=== PATIENT | female | born 1965 | race Hispanic/Latino ===

== ENCOUNTER 2021-01-11 16:43 | Observation (INO) | payer BC ==
[~2021-01-11] VITALS: Ht 152.4 cm; Wt 86.1 kg
[2021-01-11] MEDS ORDERED: ONDANSETRON 4MG INJ IVP ONE (17:00)
[2021-01-11] MEDS ORDERED: 0.9%NACL 1000ML 1,000 ML IV ONE (17:00)
[2021-01-11] MEDS ORDERED: MORPHINE 2 MG SYG IVP ONE (17:00)
[2021-01-11] MEDS ORDERED: PANTOPRAZOLE 40 MG/VIAL IVP ONE (17:00)
[2021-01-11 17:27] LABS: BASOPHILS % (AUTO) 0.5 % (0.0-5.0); EOSINOPHILS % (AUTO) 0.4 % (0.0-8.0); LYMPHOCYTES % (AUTO) 16.8 % (21.0-51.0); MEAN CORPUSCULAR HEMOGLOBIN 29.9 pg (27.0-33.0); MEAN CORPUSCULAR HGB CONC 32.6 g/dL (32.0-36.0); MEAN CORPUSCULAR VOLUME 91.8 fL (79-99); MONOCYTES % (AUTO) 6.1 % (3.0-13.0); NEUTROPHILS % (AUTO) 75.8 % (40.0-77.0); PLATELET COUNT (AUTO) 309 K/uL (130-400); RED BLOOD CELL COUNT(AUTO) 4.25 MIL/uL (4.00-5.50); RED CELL DISTRIBUTION WIDTH 12.7 % (11.0-15.5); WHITE BLOOD COUNT (AUTO) 13.7 K/uL (4.8-10.8)
[2021-01-11 17:39] LABS: CREATININE 1.5 mg/dL (0.5-1.5); POTASSIUM 3.6 mmol/L (3.5-5.1)
[2021-01-11 17:44] LABS: ALBUMIN 3.4 g/dL (3.5-5.0); BILIRUBIN,TOTAL 0.3 mg/dL (0.2-1.0); TOTAL PROTEIN, SERUM 7.4 g/dL (6.0-8.3)
[2021-01-11] MEDS ORDERED: PANTOPRAZOLE 40 MG/VIAL ONE (18:16)
[2021-01-11] MEDS ORDERED: ONDANSETRON 4MG INJ ONE (18:16)
[2021-01-11] MEDS ORDERED: MORPHINE 2 MG SYG ONE (18:17)
[2021-01-11 19:00] VITALS: BP 161/63
[2021-01-11] MEDS ORDERED: ONDANSETRON 4MG INJ IV PRN (19:30)
[2021-01-11] MEDS ORDERED: ACETAMINOPHEN 325 MG TAB PO PRN ×2 (19:30)
[2021-01-11] MEDS ORDERED: NITROGLYCERIN 0.4 MG SL TAB SL PRN (19:30)
[2021-01-11 19:58] LABS: INR 1.02 (0.85-1.15); PROTHROMBIN TIME 11.1 SEC (9.6-11.6)
[2021-01-11 19:59] LABS: PARTIAL THROMBOPLASTIN TIME 23.1 SEC (26.3-35.5)
[2021-01-11] MEDS: LACTATED RINGERS 1000ML 1,000 ML IV SCH (20:30)
[2021-01-11] MEDS: ZOSYN 3.375GM+NS 50ML 50 ML IV SCH ×2 (20:30→21:00)
[2021-01-11 21:03] LABS: APPEARANCE,URINE Clear (CLEAR); BILIRUBIN,URINE Negative (NEGATIVE); COLOR,URINE Yellow (YELLOW); GLUCOSE, URINE (UA) Negative (NEGATIVE); KETONES,URINE Negative (NEGATIVE); LEUKOCYTE ESTERASE ,URINE Trace (NEGATIVE); NITRATE,URINE Negative (NEGATIVE); OCCULT BLOOD,URINE Negative (NEGATIVE); PROTEIN,URINE Trace mg/dL (NEGATIVE); UROBILINOGEN,URINE 0.2 mg/dL (0.2-1.0)
[2021-01-11 21:14] LABS: HEMOGLOBIN A1C 6.1 % (4.0-6.0)
[2021-01-11 21:16] LABS: BACTERIA,URINE Rare /HPF (None Seen); RBC,URINE 0-1 /HPF (0-1)
[2021-01-11 21:17] LABS: SQUAMOUS EPITHELIAL CELL,UR Few /HPF (0-2)
[2021-01-11 21:18] LABS: MUCUS,URINE Rare LPF (None Seen)
[2021-01-11 22:10] VITALS: BP 132/67
[2021-01-11] MEDS ORDERED: IPRATROPIUM/ALBUTEROL SULFATE 3 ML SOLUTION IH PRN (22:30)
[2021-01-11] MEDS ORDERED: 0.9%NACL 100ML 100 ML ONE (23:15)
[2021-01-11 23:39] VITALS: BP 132/64
[2021-01-12 01:41] LABS: HEMATOCRIT 36.3 % (36-48)
[2021-01-12 03:51] VITALS: BP 94/56
[2021-01-12] MEDS: ZOSYN 3.375GM+NS 50ML 50 ML IV SCH ×3 (06:08→20:38)
[2021-01-12] MEDS: LACTATED RINGERS 1000ML 1,000 ML IV SCH ×2 (06:45→13:40)
[2021-01-12 08:59] LABS: BASOPHILS % (AUTO) 0.8 % (0.0-5.0); EOSINOPHILS % (AUTO) 1.2 % (0.0-8.0); HEMATOCRIT 40.1 % (36-48); LYMPHOCYTES % (AUTO) 22.8 % (21.0-51.0); MEAN CORPUSCULAR HEMOGLOBIN 29.5 pg (27.0-33.0); MEAN CORPUSCULAR HGB CONC 31.9 g/dL (32.0-36.0); MEAN CORPUSCULAR VOLUME 92.4 fL (79-99); MONOCYTES % (AUTO) 4.7 % (3.0-13.0); NEUTROPHILS % (AUTO) 70.3 % (40.0-77.0); PLATELET COUNT (AUTO) 307 K/uL (130-400); RED BLOOD CELL COUNT(AUTO) 4.34 MIL/uL (4.00-5.50); RED CELL DISTRIBUTION WIDTH 12.9 % (11.0-15.5); WHITE BLOOD COUNT (AUTO) 8.9 K/uL (4.8-10.8)
[2021-01-12] MEDS: PANTOPRAZOLE 40 MG/VIAL IVP SCH (09:00)
[2021-01-12 09:34] VITALS: BP 124/68
[2021-01-12 09:58] LABS: ALBUMIN 3.2 g/dL (3.5-5.0); BILIRUBIN,TOTAL 0.3 mg/dL (0.2-1.0); CREATININE 1.2 mg/dL (0.5-1.5); MAGNESIUM 2.3 mg/dL (1.80-2.40); POTASSIUM 3.7 mmol/L (3.5-5.1)
[2021-01-12 10:10] VITALS: BP 126/71
[2021-01-12 14:05] LABS: HEMATOCRIT 37.8 % (36-48)
[2021-01-12] MEDS ORDERED: PEG 3350/NA SULF,BICARB,CL/KCL 4000 ML SOLN PO ONE (15:30)
[2021-01-12] MEDS ORDERED: ALBUTER IH (15:57)
[2021-01-12] MEDS ORDERED: CRESTOR PO (15:57)
[2021-01-12 16:33] VITALS: BP 135/52
[2021-01-12] MEDS ORDERED: ALBUTEROL INHALER 90MCG/INH IH PRN (19:00)
[2021-01-12 19:53] LABS: HEMATOCRIT 39.9 % (36-48)
[2021-01-12 20:18] VITALS: BP 139/70
[2021-01-12] MEDS ORDERED: ALBUTER IH SCH (21:00)
[2021-01-12] MEDS ORDERED: CRESTOR PO SCH (21:00)
[2021-01-12 23:42] VITALS: BP 130/57
[2021-01-13] VITALS (19 sets, daily range): BP systolic 100–145; BP diastolic 48–88
[2021-01-13 01:46] LABS: HEMATOCRIT 35.2 % (36-48)
[2021-01-13] MEDS: LACTATED RINGERS 1000ML 1,000 ML IV SCH ×3 (02:21→22:43)
[2021-01-13] MEDS: ZOSYN 3.375GM+NS 50ML 50 ML IV SCH ×3 (05:32→22:43)
[2021-01-13] MEDS: PANTOPRAZOLE 40 MG/VIAL IVP SCH (08:14)
[2021-01-13] MEDS ORDERED: ROSU10TA22 PO (09:58)
[2021-01-13] MEDS ORDERED: 0.9%NACL 1000ML 1,000 ML IV ONE (11:34)
[2021-01-13] MEDS ORDERED: PROPOFOL 10 MG/ML 20ML VIAL IV ONE (13:52)
[2021-01-13] MEDS ORDERED: MIDAZOLAM HCL 1 MG/ML 2ML VIAL ONE (13:53)
[2021-01-13 16:54] LABS: HEMATOCRIT 37.9 % (36-48)
[2021-01-13 19:48] LABS: HEMATOCRIT 35.5 % (36-48)
[2021-01-13] MEDS ORDERED: ATORVASTATIN 20 MG TABLET PO SCH (21:00)
[2021-01-14 02:07] LABS: HEMATOCRIT 35.4 % (36-48)
[2021-01-14 04:31] VITALS: BP 137/38
[2021-01-14] MEDS: ZOSYN 3.375GM+NS 50ML 50 ML IV SCH (05:04)
[2021-01-14 07:30] VITALS: BP 155/73
[2021-01-14 07:54] LABS: HEMATOCRIT 36.4 % (36-48)
[2021-01-14] MEDS: PANTOPRAZOLE 40 MG/VIAL IVP SCH (11:04)
== END 2021-01-14 13:30 | disposition home or self-care (01) ==
LOC: EDH 16:43 → INTOOBSV 19:09 → EDHIP 19:09 → 3AH 01-12 10:33
PROVIDERS: ADMIT Internal Medicine; ATTEND Internal Medicine
DX: K57.30 Diverticulosis of large intestine without perforation or abscess without bleeding (principal); Z20.822 Contact with and (suspected) exposure to COVID-19; N17.9 Acute kidney failure, unspecified; K92.1 Melena; D72.829 Elevated white blood cell count, unspecified; N28.9 Disorder of kidney and ureter, unspecified; R82.71 Bacteriuria; J45.909 Unspecified asthma, uncomplicated; E78.5 Hyperlipidemia, unspecified; E78.00 Pure hypercholesterolemia, unspecified; R11.2 Nausea with vomiting, unspecified
CPT/HCPCS: 36415 ×4; 45378; 71046; 74176; 80053 ×2; 81001; 82150; 82270; 82550; 82948; 83036; 83690; 83735; 84484; 85014 ×9; 85018 ×9; 85025 ×2; 85610; 85730; 86850; 86900; 86901; 87040 ×2; 87046; 87088; 87324; 87507; 87635; 96361 ×3; 96365; 96366 ×4; 96375; 96376 ×3; 99291; A4222; A4223; A4606; A4620; A4657; A4663; C9113 ×4; G0378 ×46; J2250; J2405; J2543 ×8; J2704; J7030 ×2; J7120 ×5

== ENCOUNTER → 2024-08-18 | Emergency (ER) | payer OTHER ==
[~2024-08-18] VITALS: Ht 152.4 cm; Wt 79.4 kg
[~2024-08-18] MED LIST: ACET-2079 PO; ALBUTER IH; IBUP-2070 PO; PANT40TA55 PO; ROSU10TA22 PO
--- NOTE | 2024-08-18 10:33 | ERN ---
General Chief Complaint: Multiple Complaints Stated Complaint: MULTIPLE COMPLAINTS Time Seen by MD: 10:29 Source: patient History of Present Illness Initial Comments THIS IS A 59-YEAR-OLD FEMALE COMING IN TO BE EVALUATED FOR GENERALIZED BODY WEAKNESS AND NAUSEOUSNESS. PER PATIENT SHE WOKE UP FINE WENT TO WORK AT WORK SHE STARTED HAVING DIZZINESS WITH NAUSEOUSNESS. SHE STATES THAT THE SYMPTOMS RESOLVED ON THEIR OWN. PATIENT WAS BROUGHT IN BY EMS ON ROUTE TO HOSPITAL PATIENT STATES THAT SHE STARTED HAVING A HEADACHE. Allergies: Coded Allergies: No Known Allergies (Unverified Allergy, Unknown, 01/11/21) Home Meds Active Scripts Acetaminophen with Codeine (Acetaminophen-Cod #3 Tablet) 1 Each Tablet, 1 TAB PO Q6H PRN for SEVERE PAIN (7-10), #15 TAB Prov:NAPOLEON LEAVITT MD 09/28/22 Ibuprofen (Ibuprofen) 600 Mg Tablet, 600 MG PO Q6H PRN for PAIN, #30 TAB Prov:NAPOLEON LEAVITT MD 09/28/22 Reported Medications Rosuvastatin Calcium (Crestor) 10 Mg Tablet, 10 MG PO HS, TAB 01/13/21 [Albuter] No Conflict Check, 2 PUFF IH BID 01/12/21 Past Medical History Past Medical History: Asthma, High Cholesterol, Pneumonia Medical History Other: Borderline DM Past Surgical History: Hysterectomy Social History Social History: Negative, Lives with family Female( History) History: Not Applicable ROS Dictation CONSTITUTIONAL: NO CHILLS, NO FEVER, NO WEAKNESS, NO DIAPHORESIS, NO MALAISE. HEAD/FACE: NO SIGNS OF TRAUMA. EENT: NO EYE PAIN, NO BLURRED VISION, NO TEARING, NO DOUBLE VISION, NO EAR PAIN, NO EAR DISCHARGE, NO NOSE PAIN, NO NASAL CONGESTION, NO THROAT PAIN, NO THROAT SWELLING, NO MOUTH PAIN. RESPIRATORY: NO COUGH, NO ORTHOPNEA, NO SOB, NO STRIDOR, NO WHEEZING. CARDIOVASCULAR: NO CHEST PAIN, NO EDEMA, NO PALPITATIONS, NO SYNCOPE. GASTROINTESTINAL/ABDOMINAL: NO ABDOMINAL PAIN, NO CONSTIPATION, NO DIARRHEA, NO NAUSEA, NO VOMITING. GENITOURINARY: NO ABNORMAL DISCHARGE, NO DYSURIA, NO FREQUENT URINATION, NO HEMATURIA. NO COMPLAINTS OF PAIN IN THE GENITALS. MUSCULOSKELETAL: NO BACK PAIN, NO GOUT, NO JOINT PAIN, NO JOINT SWELLING, NO MUSCLE PAIN, NO MUSCLE STIFFNESS, NO NECK PAIN. INTEGUMENTARY: NO CHANGE IN COLOR, NO CHANGE IN HAIR/NAILS, NO DRYNESS, NO LESION, NO LUMPS, NO RASH. NEUROLOGICAL/PSYCH: NO ANXIETY, NOT DEPRESSED, NO EMOTIONAL PROBLEM, NO HEADACHE, NO NUMBNESS, NO PRE-EXISTING DEFICIT, NO HISTORY OF SEIZURES, NO TREMORS, NO WEAKNESS. HEMATOLOGIC/LYMPHATIC: NOT ANEMIC, NO HISTORY OF BLOOD CLOTS, NO APPARENT BLEEDING, NO BRUISING, GLANDS NOT SWOLLEN. ALL SYSTEMS NEGATIVE, EXCEPT NOTED. Physical Exam Physical Exam Dictation VITAL SIGNS: REVIEWED. GENERAL APPEARANCE: ALERT, ORIENTED X3, NO ACUTE DISTRESS, OBESE. HEAD AND FACE: NON-TRAUMATIC. EYES: PERRL, PINK CONJUNCTIVAS, EYELID NO TRAUMA, ANTERIOR CHAMBER CLEAR. EARS: PINNAS INTACT AND NO SIGNS OF TRAUMA OR ERYTHEMA. EAR CANALS CLEAR AND NO DISCHARGE. TMS NO ERYTHEMA. NOSE: NO DISCHARGE, NO BLEEDING. OROPHARYNX: MOUTH NORMAL, TEETH NO CARIES, TONGUE PINK. PHARYNX CLEAR, NO ERYTHEMA. TONSILS NO EXUDATES, NO ABSCESSES NOTED. MUCOUS MEMBRANE MOIST. NECK: SUPPLE, NON-TENDER, NO THYROMEGALY, NO MASSES, NO JVD, NO BRUITS. BREAST: DEFERRED. CHEST: NO TENDERNESS, NO CREPITUS, NO PARADOXICAL MOVEMENT, NO RETRACTIONS. LUNGS: CLEAR, WELL-VENTILATED, SYMMETRIC, NO RALES, NO WHEEZING, NO RHONCHI, NO STRIDOR, GOOD BREATH SOUNDS BILATERALLY. HEART: REGULAR RATE, REGULAR RHYTHM, NO MURMUR, NO GALLOPS. VASCULAR: NO PERIPHERAL EDEMA. ABDOMEN: SOFT, POSITIVE BOWEL SOUNDS, NONDISTENDED, NO GUARDING, NONTENDER, NO REBOUND, NO MASSES NO HEPATOMEGALY, NO SPLENOMEGALY, NO RIZZO'S SIGN, NO HERNIAS. RECTAL: DEFERRED. GENITAL: DEFERRED. NEUROLOGICAL: NORMAL SPEECH, GROSS MOTOR FUNCTION INTACT, GROSS SENSORY FUNCTION INTACT. MUSCULOSKELETAL: NECK NONTENDER, FULL RANGE OF MOTION, BACK NONTENDER, FULL RANGE OF MOTION. EXTREMITIES: NONTENDER, FULL RANGE OF MOTION. SKIN: COLOR PINK, DRY, NO TURGOR, NO RASH, NO LACERATIONS, NO ABRASIONS, NO CONTUSIONS. LYMPHATICS: DEFERRED. Results Laboratory and Microbiology Lab and Micro Result Laboratory Tests Test 08/18/24 11:14 White Blood Count 12.1 K/uL (4.8-10.8) H Red Blood Count 4.73 MIL/uL (4.00-5.50) Hemoglobin 14.1 g/dL (12.0-16.0) Hematocrit 43.7 % (36-48) Mean Corpuscular Volume 92.4 fL (79-99) Mean Corpuscular Hemoglobin 29.8 pg (27.0-33.0) Mean Corpuscular Hemoglobin Concent 32.3 g/dL (32.0-36.0) Red Cell Distribution Width 12.9 % (11.0-15.5) Platelet Count 296 K/uL (130-400) Mean Platelet Volume 10.3 fL (7.5-10.5) Immature Granulocyte % (Auto) 0.4 % (0-1) Neutrophils (%) (Auto) 75.2 % (40.0-77.0) Lymphocytes (%) (Auto) 19.0 % (21.0-51.0) L Monocytes (%) (Auto) 4.1 % (3.0-13.0) Eosinophils (%) (Auto) 0.6 % (0.0-8.0) Basophils (%) (Auto) 0.7 % (0.0-5.0) Neutrophils # (Auto) 9.1 K/uL (1.8-7.7) H Lymphocytes # (Auto) 2.3 K/uL (1.0-4.8) Monocytes # (Auto) 0.5 K/uL (0.1-1.0) Eosinophils # (Auto) 0.07 K/uL (0.00-0.70) Basophils # (Auto) 0.08 K/uL (0.00-0.20) Absolute Immature Granulocyte (auto 0.05 K/uL (0-1) Nucleated Red Blood Cells 0.0 % (0.0-0.19) Prothrombin Time 10.0 SEC (9.6-11.6) Prothromb Time International Ratio <= 0.93 (0.85-1.15) Activated Partial Thromboplast Time 26.8 SEC (26.3-35.5) Sodium Level 142 mmol/L (136-145) Potassium Level 4.6 mmol/L (3.5-5.1) Chloride Level 106 mmol/L (101-111) Carbon Dioxide Level 30 mmol/L (21-32) Blood Urea Nitrogen 19 mg/dL (7-18) H Creatinine 0.7 mg/dL (0.5-1.0) Glomerular Filtration Rate Calc 98 mL/min (>90) Random Glucose 106 mg/dL (70-105) H Total Calcium 8.9 mg/dL (8.5-10.1) Magnesium Level 1.90 mg/dL (1.80-2.40) Total Creatine Kinase 93 U/L (21-232) # Troponin I High Sensitivity 5 ng/L (4-50) B-Type Natriuretic Peptide < 5 pg/mL (0-100) EKG/XRAY/US/CT/MRI EKG Comment 08/18/2024 TIME 10:35 A.M. VENTRICULAR RATE 67 SINUS RHYTHM [place] [address] WAVE ELEVATION OR DEPRESSION MDM MDM: DIFFERENTIAL DIAGNOSIS: GASTRITIS, GASTROENTERITIS, PATIENT IS A 59-YEAR-OLD FEMALE COMING IN TO BE EVALUATED FOR ABDOMINAL DISCOMFORT. PATIENT STATES IT HAS EXTENSIVE BEGAN EARLIER TODAY. LABORATORY WORKUP FOR ACUTE FINDINGS. PATIENT RECEIVED IV FLUIDS AND IV PROTONIX STATES HE FEELS BETTER. PATIENT WILL BE DISCHARGED IN STABLE CONDITION WITH A DIAGNOSIS OF GASTRITIS. ED Course Orders Procedure Category Date Status Time Cbc With Differential LAB 08/18/24 Complete 10:31 Prothrombin Time With LAB 08/18/24 Complete INR 10:31 B-Type Natriuretic LAB 08/18/24 Complete Peptide 10:31 Chest 1vw RAD 08/18/24 Resulted 10:31 12 Lead Ekg Tracing- EKG 08/18/24 Complete Technical 10:31 Lactated Ringers PHA 08/18/24 Complete 1000ml (Lactated 11:00 Magnesium LAB 08/18/24 Complete 10:31 Creatine Kinase, Total LAB 08/18/24 Complete 10:31 Troponin I High LAB 08/18/24 Complete Sensitivity 10:31 Urinalysis Profile LAB 08/18/24 Logged 10:31 Partial LAB 08/18/24 Complete Thromboplastin Time 10:31 Basic Metabolic Panel LAB 08/18/24 Complete 10:31 Pantoprazole 40mg Inj PHA 08/18/24 In Process (Protonix 40mg Inj 16:00 Current Medications Medications (Trade) Dose Ordered Sig/Lee Route PRN Reason Start Time Stop Time Status Last Admin Dose Admin Lactated Ringer's 1,000 ml @ 0 mls/hr ONCE ONCE IV 08/18/24 11:00 08/18/24 11:01 DC 08/18/24 11:45 Pantoprazole Sodium (PROTonix 40MG INJ) 40 mg ONCE ONCE IVP 08/18/24 16:00 08/18/24 16:01 Vital Signs Date Time Temp Pulse Resp B/P (MAP) Pulse Ox O2 Delivery O2 Flow Rate FiO2 08/18/24 10:32 98.1 75 15 112/74 98 Room Air* 0 21 08/18/24 10:29 98.1 78 15 112/74 98 Room Air 0 DX & DISP Disposition: Discharge Departure Impression: Primary Impression: Gastritis Additional Impression: Dehydration Condition: Stable Scripts Pantoprazole Sodium (Protonix) 40 Mg Ectab 1 TAB PO DAILY for 30 Days, #30 TAB 0 Refills Prov: MICHEL NANCE MD 08/18/24 Additional Instructions: FOLLOW-UP WITH PRIMARY CARE PROVIDER IN 1 TO 2 DAYS. TAKE MEDICATIONS DIRECTED HERE IN THE EMERGENCY ROOM. OKAY TO CONTINUE HOME MEDICATIONS UNLESS OTHERWISE DISCUSSED DURING YOUR VISIT IN THE EMERGENCY ROOM TODAY. RETURN TO YOUR NEAREST EMERGENCY ROOM IF SYMPTOMS WORSEN OR IF THERE IS NO IMPROVEMENT. CALL 911 IF YOU NEED IMMEDIATE ASSISTANCE. TAKE TYLENOL [id number] NEEDED AND IF NO CONTRAINDICATIONS ARE PRESENT. INCREASE ORAL HYDRATION. A WOUND CULTURE OR URINE CULTURE WAS ORDERED HERE IN THE EMERGENCY ROOM DEPARTMENT PLEASE FOLLOW-UP WITH PRIMARY CARE PROVIDER AND ADVISE THEM TO GET REPEAT PORTS FROM OUR FACILITY. IF YOU HAD ANY ANANDA WRAP/SPLINTS THAT WERE APPLIED HERE, PLEASE DO NOT REMOVE THEM UNTIL YOU SEE YOUR PRIMARY CARE OR SPECIALTY. REFERRALS: Referrals: TANNA BLUNT (PCP) Time of Disposition: 15:51 MICHEL NANCE MD Aug 18, 2024 10:33
--- NOTE | 2024-08-18 11:07 | EKG ---
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
[2024-08-18 11:26] LABS: BASOPHILS # (AUTO) 0.08 K/uL (0.00-0.20); BASOPHILS % (AUTO) 0.7 % (0.0-5.0); EOSINOPHILS # (AUTO) 0.07 K/uL (0.00-0.70); EOSINOPHILS % (AUTO) 0.6 % (0.0-8.0); HEMATOCRIT 43.7 % (36-48); IMMATURE GRANULOCYTE ABSOLUTE 0.05 K/uL (0-1); LYMPHOCYTES # (AUTO) 2.3 K/uL (1.0-4.8); MEAN CORPUSCULAR HEMOGLOBIN 29.8 pg (27.0-33.0); MEAN CORPUSCULAR HGB CONC 32.3 g/dL (32.0-36.0); MEAN CORPUSCULAR VOLUME 92.4 fL (79-99); MONOCYTES # (AUTO) 0.5 K/uL (0.1-1.0); MONOCYTES % (AUTO) 4.1 % (3.0-13.0); NEUTROPHILS # (AUTO) 9.1 K/uL (1.8-7.7); NEUTROPHILS % (AUTO) 75.2 % (40.0-77.0); PLATELET COUNT (AUTO) 296 K/uL (130-400); RED BLOOD CELL COUNT(AUTO) 4.73 MIL/uL (4.00-5.50); RED CELL DISTRIBUTION WIDTH 12.9 % (11.0-15.5); WHITE BLOOD COUNT (AUTO) 12.1 K/uL (4.8-10.8)
[2024-08-18 11:38] LABS: CREATININE 0.7 mg/dL (0.5-1.0); POTASSIUM 4.6 mmol/L (3.5-5.1)
[2024-08-18 11:42] LABS: INR <= 0.93 (0.85-1.15)
[2024-08-18 11:43] LABS: MAGNESIUM 1.9 mg/dL (1.80-2.40); PARTIAL THROMBOPLASTIN TIME 26.8 SEC (26.3-35.5)
[2024-08-18] MEDS: LACTATED RINGERS 1000ML 1,000 ML IV ONE (11:45)
[2024-08-18 11:52] LABS: B-TYPE NATRIURETIC PEPTIDE < 5 pg/mL (0-100)
--- NOTE | 2024-08-18 11:58 | HMCIMG ---
CHEST 1VW REASON: CP COMPARISON: 01/11/2021 FINDINGS: Single view of the chest was obtained. Lungs are clear. Heart size is normal. There is no pulmonary vascular congestion. Mediastinum and bony thorax appear unremarkable. IMPRESSION: 1. Normal single view chest x-ray."
[2024-08-18] MEDS: PANTOPrazole 40 MG/VIAL IVP ONE (16:11)
[2024-08-18 16:14] VITALS: BP 127/66; PULSE 69; RESP 18; TEMP 97.9; O2SAT 96
== END ==
LOC: EDH 10:27
DX: A00.0 Cholera due to Vibrio cholerae 01, biovar cholerae (principal); K29.70 Gastritis, unspecified, without bleeding; E86.0 Dehydration; E78.00 Pure hypercholesterolemia, unspecified; J45.909 Unspecified asthma, uncomplicated; Z90.710 Acquired absence of both cervix and uterus
CPT/HCPCS: 99285; 96374; 96361; 71045; 82550; 83735; 84484; 80048; 83880; 85025; 85610; 85730; 36415; 93005; J7120; J2470